=== PATIENT | male | born 1985 | race African-American/Black ===

== ENCOUNTER 2016-10-08 16:01 | Emergency (ER) | payer BC, OTHER ==
[~2016-10-08 16:01] MED LIST: CARA1SUS3 PO; PROM25TA5 PO; ZOFR4TAB3 SL
[2016-10-08 16:09] VITALS: BP 145/91; PULSE 131; RESP 22; TEMP 98.5; O2SAT 95
[2016-10-08] MEDS ORDERED: SODIUM CHLOR 0.9% 1000 ML INJ 1,000 ML IV ONE (16:12)
[2016-10-08] MEDS ORDERED: SODIUM CHLOR 0.9% 1000 ML INJ 800 ML IV ONE (16:12)
[2016-10-08] MEDS ORDERED: PROM25TA10 PO (16:13)
--- NOTE | 2016-10-08 16:15 | PD ---
HPI Chief Complaint: Respiratory Symptoms Time Seen by Provider: 16:09 Travel History International Travel<30 days: No Contact w/Intl Traveler<30days: No Traveled to known affect area: No History of Present Illness HPI 31-year-old male here for evaluation of shortness of breath and chest tightness. Patient reports symptoms mainly on for last couple of days. Shortness of breath is intermittent, worse with exertion. He reports that he has not been feeling well for the last several days having diarrhea and nausea and vomiting earlier this week. He is not sure if he has had fever. He has had a nonproductive cough. No hemoptysis. No known history of cardiopulmonary disease. He is a nonsmoker. No illicit drug use. He drinks alcohol occasionally. PFSH Past Medical History Blood Disorders: No Cancer: No Cardiovascular Problems: No Diminished Hearing: No Endocrine: No Gastrointestinal Disorders: No Immune Disorder: No Kidney Stones: Yes (LITHOTRIPSY 07/14) Musculoskeletal: No Neurologic: No Psychiatric: No Reproductive: No Respiratory: No Past Surgical History Genitourinary Surgery: Yes (LITHOSTRIPSY) Other Surgery: No Social History Alcohol Use: Yes (occ) Tobacco Use: No Substance Use: No Allergies-Medications (Allergen,Severity, Reaction): Coded Allergies: Zithromax (Unverified Adverse Reaction, Unknown, VOMITING, 10/08/16) Reported Meds & Prescriptions Reported Meds & Active Scripts Active Reported Phenergan (Promethazine HCl) 25 Mg Tablet 25 Mg PO Q6H PRN Review of Systems Except as stated in HPI: all other systems reviewed are Neg Physical Exam Narrative GENERAL: Well-developed, well-nourished, comfortable, no apparent distress. SKIN: Focused skin assessment warm/dry. HEAD: Atraumatic. Normocephalic. EYES: Pupils equal and round. No scleral icterus. No injection or drainage. ENT: Mucous membranes pink and dry. NECK: Trachea midline. No JVD. No nuchal rigidity. CARDIOVASCULAR: Tachycardic, regular. RESPIRATORY: No accessory muscle use. Clear to auscultation. Breath sounds equal bilaterally. GASTROINTESTINAL: Abdomen soft, non-tender, nondistended. MUSCULOSKELETAL: No obvious deformities. No clubbing. No cyanosis. No edema. NEUROLOGICAL: Awake and alert. No obvious cranial nerve deficits. Motor grossly within normal limits. Normal speech. PSYCHIATRIC: Appropriate mood and affect; insight and judgment normal. Data Data Last Documented VS Vital Signs Date Time Temp Pulse Resp B/P Pulse Ox O2 Delivery O2 Flow Rate FiO2 10/08/16 18:00 77 20 135/67 100 Nasal Cannula 2 10/08/16 17:11 98.5 Orders Complete Blood Count With Diff (10/08/16 16:12) Comprehensive Metabolic Panel (10/08/16 16:12) Lactic Acid Sepsis Protocol (10/08/16 16:12) Influenzae A/B Antigen (10/08/16 16:12) Blood Culture (10/08/16 16:12) Chest, Single Ap (10/08/16 16:12) Ecg Monitoring (10/08/16 16:12) Iv Access Insert/Monitor (10/08/16 16:12) Oximetry (10/08/16 16:12) Sodium Chlor 0.9% 1000 Ml Inj (Ns 1000 M (10/08/16 16:12) Sodium Chlor 0.9% 1000 Ml Inj (Ns 1000 M (10/08/16 16:12) Ckmb (Isoenzyme) Profile (10/08/16 16:12) D-Dimer (10/08/16 16:12) Troponin I (10/08/16 16:12) CKMB (10/08/16 16:10) CKMB% (10/08/16 16:10) Troponin I (10/08/16 19:00) Labs Laboratory Tests Test 10/08/16 10/08/16 16:10 18:55 White Blood Count 7.0 TH/MM3 Red Blood Count 5.49 MIL/MM3 Hemoglobin 15.8 GM/DL Hematocrit 47.2 % Mean Corpuscular Volume 85.8 FL Mean Corpuscular Hemoglobin 28.7 PG Mean Corpuscular Hemoglobin 33.4 % Concent Red Cell Distribution Width 13.3 % Platelet Count 201 TH/MM3 Mean Platelet Volume 10.7 FL Neutrophils (%) (Auto) 44.9 % Lymphocytes (%) (Auto) 44.9 % Monocytes (%) (Auto) 7.4 % Eosinophils (%) (Auto) 2.2 % Basophils (%) (Auto) 0.6 % Neutrophils # (Auto) 3.1 TH/MM3 Lymphocytes # (Auto) 3.2 TH/MM3 Monocytes # (Auto) 0.5 TH/MM3 Eosinophils # (Auto) 0.2 TH/MM3 Basophils # (Auto) 0.0 TH/MM3 CBC Comment DIFF FINAL Differential Comment D-Dimer Quantitative (PE/DVT) LESS THAN 0.19 MG/L FEU Sodium Level 140 MEQ/L Potassium Level 3.3 MEQ/L Chloride Level 106 MEQ/L Carbon Dioxide Level 24.2 MEQ/L Anion Gap 10 MEQ/L Blood Urea Nitrogen 8 MG/DL Creatinine 1.20 MG/DL Estimat Glomerular Filtration 86 ML/MIN Rate Random Glucose 109 MG/DL Lactic Acid Level 2.7 mmol/L 1.0 mmol/L Calcium Level 9.3 MG/DL Total Bilirubin 0.9 MG/DL Aspartate Amino Transf 13 U/L (AST/SGOT) Alanine Aminotransferase 25 U/L (ALT/SGPT) Alkaline Phosphatase 75 U/L Total Creatine Kinase 129 U/L Creatine Kinase MB 0.5 NG/ML Troponin I LESS THAN 0.02 LESS THAN 0.02 NG/ML NG/ML Total Protein 8.2 GM/DL Albumin 4.5 GM/DL [facility] Medical Decision Making Medical Screen Exam Complete: Yes Emergency Medical Condition: Yes Medical Record Reviewed: Yes Interpretation(s) EKG: Sinus, rate 123, rightward axis, nonspecific inferior T-wave abnormality, no ST segment abnormalities. Differential Diagnosis Sepsis, pneumonia, dehydration, metabolic abnormality, anemia, ACS, PE, pneumothorax, pericarditis Narrative Course Initial vital signs show heart rate 131, blood pressure 145/91, pulse ox 95% on room air, oral temp of 98.5F. Heart rate improved to 91 after a liter of normal saline IV. HR after 2 L NS was 78. CBC is unremarkable. CMP is remarkable for potassium 3.3, otherwise unremarkable. Influenza is negative. Cardiac enzymes are negative. D-dimer is less than 0.19. Initial lactic acid is 2.7. This could be secondary to prolonged tourniquet time. This will be repeated after the patient is given 2 L normal saline IV. Chest xray: No acute disease. Repeat lactic acid is 1.0. Delta troponin is also negative. Patient was made aware of all findings and was observed in the emergency department. He was given 2 L of normal saline IV and on reassessment is resting comfortably. His lung sounds are clear and equal bilaterally. He is in no respiratory distress. Not believe his symptoms are cardiac in nature. His symptoms are more likely anxiety. The patient does report having some stress lately with work. He denies suicidal or homicidal ideation. At this point I believe he is stable for discharge home with outpatient follow-up with a primary care physician this week. He was informed on when to return to the emergency department. He verbalizes understanding and agreement with plan. Diagnosis Primary Impression: Dyspnea Qualified Code: R06.00 - Dyspnea, unspecified type Additional Impression: Sinus tachycardia Referrals: [facility] 3 days Primary Care Physician 3 days Additional Instructions: Follow-up with a primary care physician this week. Return to the emergency department for worsening symptoms or any other concerns. Scripts Hydroxyzine Pamoate (Vistaril)25 Mg Cap25 Mg PO TID PRN (ANXIETY) #15 CAP Ref 0 Prov:Stu Yates MD 10/08/16 Disposition: 01 DISCHARGE HOME Condition: Stable Stu Yates MD Oct 08, 2016 16:15
[2016-10-08 16:23] VITALS: O2SAT 96
--- NOTE | 2016-10-08 16:39 | RADHPO ---
EXAM DATE/TIME: 10/08/2016 16:27 [facility] COMPARISON: CHEST SINGLE AP, April 12, 2014, 20:28. INDICATIONS : Shortness of breath. MEDICAL HISTORY : None. SURGICAL HISTORY : None. ENCOUNTER: Initial ACUITY: 1 day PAIN SCORE: 5/10 LOCATION: Bilateral chest FINDINGS: A single view of the chest demonstrates the lungs to be symmetrically aerated without evidence of mas s, infiltrate or effusion. The cardiomediastinal contours are unremarkable. Osseous structures are intact. CONCLUSION: No acute disease. Eduardo Gonzales MD FACR on October 08, 2016 at 16:37 Board Certified Radiologist. This report was verified electronically.
[2016-10-08 16:50] LABS: AUTOMATED NEUTROPHIL # 3.1 TH/MM3 (1.8-7.7); BASOPHIL % 0.6 % (0.0-2.0); CHLORIDE 106 MEQ/L (98-107); EOSINOPHIL # 0.2 TH/MM3 (0-0.4); EOSINOPHIL % 2.2 % (0.0-4.0); HEMATOCRIT 47.2 % (39.0-51.0); HEMO FLAGS DIFF FINAL; LYMPH % 44.9 % (9.0-44.0); LYMPHOCYTE # 3.2 TH/MM3 (1.0-4.8); MEAN CELL VOLUME 85.8 FL (80.0-100.0); MEAN CORPUSCULAR HEMOGLOBIN 28.7 PG (27.0-34.0); MEAN CORPUSCULAR HGB CONC 33.4 % (32.0-36.0); MONO % 7.4 % (0.0-8.0); NEUT % 44.9 % (16.0-70.0); PLATELET COUNT 201 TH/MM3 (150-450); POTASSIUM 3.3 MEQ/L (3.5-5.1); RED BLOOD COUNT 5.49 MIL/MM3 (4.50-5.90); RED CELL DISTRIBUTION WIDTH 13.3 % (11.6-17.2); SODIUM (NA) 140 MEQ/L (136-145)
[2016-10-08 16:56] LABS: ANION GAP 10 MEQ/L (5-15); BICARBONATE 24.2 MEQ/L (21.0-32.0); BLOOD UREA NITROGEN 8 MG/DL (7-18)
[2016-10-08 16:59] LABS: ALT (GPT) 25 U/L (12-78); AST (GOT) 13 U/L (15-37); GLOMERULAR FILTRATION RATE 86 ML/MIN (>89)
[2016-10-08 17:00] LABS: TOTAL BILIRUBIN ADULT 0.9 MG/DL (0.2-1.0)
[2016-10-08 17:02] LABS: ALKALINE PHOSPHATASE 75 U/L (45-117); CREATINE KINASE 129 U/L (39-308)
[2016-10-08 17:11] VITALS: BP 144/71; PULSE 96; RESP 20; TEMP 98.5; O2SAT 100
[2016-10-08 17:14] LABS: CKMB 0.5 NG/ML (0.5-3.6)
[2016-10-08 18:00] VITALS: BP 135/67; PULSE 77; RESP 20; O2SAT 100
[2016-10-08 18:28] LABS: LACTIC ACID GHOST NOT REPORTABLE
[2016-10-08] MEDS ORDERED: VIST25CA PO (19:31)
[2016-10-08 19:33] VITALS: BP 136/77; PULSE 77; RESP 18; O2SAT 100
--- NOTE | 2016-10-09 14:25 | EKG ---
Date Performed: 10/08/2016 Time Performed: 16:03:14 PTAGE: 31 years EKG: Sinus tachycardia Possible left atrial abnormality Possible left posterior fascicular block Inferior T wave changes are nonspecific Compared to previous tracing, the ST elevation is no longer present. The ST changes previously seen may have been due to early repolarization but are not present on this tracing Borderline ECG PREVIOUS TRACING : 09/08/2013 08.53 DOCTOR: Raymond Meyers Interpretating Date/Time 10/09/2016 14:25:11
== END 2016-10-08 19:55 | disposition home or self-care (01) ==
LOC: PHED 16:01
DX: R06.00 Dyspnea, unspecified (principal); R00.0 Tachycardia, unspecified; R07.89 Other chest pain; R05 Cough; R94.31 Abnormal electrocardiogram [ECG] [EKG]; Z87.442 Personal history of urinary calculi
CPT/HCPCS: 71010; 80053; 82550; 82552; 83605; 84484; 85025; 85379; 87040; 87804; 93005; 96360; 96361; 99284; J7030

== ENCOUNTER 2016-10-14 05:40 | Emergency (ER) | payer OTHER ==
[~2016-10-14] VITALS: Ht 185.4 cm; Wt 90.9 kg
[2016-10-14] VITALS (7 sets, daily range): BP systolic 118–134; BP diastolic 73–84; PULSE 66–86; RESP 18; TEMP 97.8; O2SAT 97–100
[~2016-10-14 05:40] MED LIST changes: -CARA1SUS3 PO; +PROM25TA10 PO; -PROM25TA5 PO; +VIST25CA PO; -ZOFR4TAB3 SL
[2016-10-14] MEDS ORDERED: VENTAER INH (05:56)
[2016-10-14] MEDS ORDERED: SODIUM CHLOR 0.9% 1000 ML INJ 1,000 ML IV ONE ×2 (06:00→07:00)
[2016-10-14] MEDS ORDERED: KETOROLAC TROMETHAMINE 30 MG/ML (IVP) VIAL IV PUSH ONE (06:00)
[2016-10-14] MEDS ORDERED: SODIUM CHLORIDE 0.9% FLUSH 10 ML FLUSH IVF PRN (06:00)
--- NOTE | 2016-10-14 06:04 | PD ---
HPI Chief Complaint: Respiratory Symptoms Time Seen by Provider: 05:54 Travel History International Travel<30 days: No Contact w/Intl Traveler<30days: No Traveled to known affect area: No History of Present Illness HPI 31-year-old male presents to the emergency department by EMS transport from home for complaint of being awakened from sleep with shortness of breath. Patient states that sensation of tightness in his throat and burning sensation in the throat. Unknown history of reflux esophagitis. Patient was just seen in the emergency department for same complaint 10/08/16 with extensive workup. Patient denies personal history of CAD hypertension dyslipidemia diabetes or tobaccoism. No family history of premature onset cardiac disease. Patient was given a rescue inhaler by his primary care provider on Tuesday and he states that seems to make his symptoms worse. Patient denies any chest pain referred neck jaw back shoulder arm or abdominal pain. No sweats no nausea no vomiting. Patient does complain of shortness of breath. Patient was given prescription for Vistaril and his last ER visit but did not fill the prescription. Patient denies any recent long distance travel protracted bedrest her surgical procedure and no lower extremity pain or swelling and no pleuritic chest pain. Patient's had no cough or phlegm production. No fever or chills. Patient rates discomfort 5/10 in intensity. PFSH Past Medical History Blood Disorders: No Cancer: No Cardiovascular Problems: No Diminished Hearing: No Endocrine: No Gastrointestinal Disorders: No Immune Disorder: No Kidney Stones: Yes (LITHOTRIPSY 07/14) Musculoskeletal: No Neurologic: No Psychiatric: No Reproductive: No Respiratory: No Past Surgical History Genitourinary Surgery: Yes (LITHOSTRIPSY) Other Surgery: No Social History Alcohol Use: Yes (occ) Tobacco Use: No Substance Use: No Allergies-Medications (Allergen,Severity, Reaction): Coded Allergies: Zithromax (Unverified Adverse Reaction, Unknown, VOMITING, 10/14/16) Reported Meds & Prescriptions Reported Meds & Active Scripts Active Motrin Ib (Ibuprofen) 200 Mg Tablet 600 Mg PO Q6HR PRN Vistaril (Hydroxyzine Pamoate) 25 Mg Cap 25 Mg PO TID PRN Reported Ventolin Hfa 18 GM Inh (Albuterol Sulfate) 90 Mcg/Act Aer 2 Puff INH Q4-6H PRN Phenergan (Promethazine HCl) 25 Mg Tablet 25 Mg PO Q6H PRN Review of Systems Except as stated in HPI: all other systems reviewed are Neg General / Constitutional: No: Fever, Chills HENT: No: Congestion Cardiovascular: No: Chest Pain or Discomfort Respiratory: Positive: Shortness of Breath, No: Cough Gastrointestinal: No: Abdominal Pain Genitourinary: No: Flank Pain Musculoskeletal: No: Edema, Pain Neurologic: No: Weakness Psychiatric: Positive: Anxiety Hematologic/Lymphatic: No: Lymph Node Enlargement Physical Exam Narrative GENERAL: Well developed, well nourished male in no acute distress no respiratory distress; no stridor or hoarseness. SKIN: Warm and dry. HEAD: Normocephalic. EYES: No scleral icterus. No injection or drainage. ENT: Mucous membranes moist and airway is patent; no posterior pharyngeal edema, erythema, or exudate. NECK: Supple, trachea midline. No JVD or lymphadenopathy. CARDIOVASCULAR: Regular rate and rhythm without murmurs, gallops, or rubs. RESPIRATORY: Breath sounds equal bilaterally. No accessory muscle use. GASTROINTESTINAL: Abdomen soft, non-tender, nondistended. MUSCULOSKELETAL: No cyanosis, or edema. BACK: Nontender without obvious deformity. No CVA tenderness. Data Data Last Documented VS Vital Signs Date Time Temp Pulse Resp B/P Pulse Ox O2 Delivery O2 Flow Rate FiO2 10/14/16 08:00 66 18 122/75 100 Room Air 10/14/16 05:40 97.8 Orders Complete Blood Count With Diff (10/14/16 05:54) Basic Metabolic Panel (Bmp) (10/14/16 05:54) D-Dimer (10/14/16 05:54) Magnesium (Mg) (10/14/16 05:54) Troponin I (10/14/16 05:54) Urinalysis - C+S If Indicated (10/14/16 05:54) Iv Access Insert/Monitor (10/14/16 05:54) Electrocardiogram (10/14/16 05:54) Ecg Monitoring (10/14/16 05:54) Oximetry (10/14/16 05:54) Oxygen Administration (10/14/16 05:54) Chest, Single Ap (10/14/16 05:54) Sodium Chloride 0.9% Flush (Ns Flush) (10/14/16 06:00) Drug Screen, Random Urine (10/14/16 05:54) Westergren Sedimentation Rate (10/14/16 05:54) Sodium Chlor 0.9% 1000 Ml Inj (Ns 1000 M (10/14/16 06:00) Ketorolac Inj (Toradol Inj) (10/14/16 06:00) Lactic Acid (10/14/16 05:54) Nitroglycerin Sl (Nitrostat Sl) (10/14/16 06:15) Sodium Chlor 0.9% 1000 Ml Inj (Ns 1000 M (10/14/16 07:00) Lactic Acid (10/14/16 07:58) Labs Laboratory Tests Test 10/14/16 10/14/16 10/14/16 06:05 07:56 08:04 White Blood Count 7.0 TH/MM3 Red Blood Count 5.21 MIL/MM3 Hemoglobin 14.8 GM/DL Hematocrit 45.1 % Mean Corpuscular Volume 86.5 FL Mean Corpuscular Hemoglobin 28.3 PG Mean Corpuscular Hemoglobin 32.7 % Concent Red Cell Distribution Width 13.0 % Platelet Count 171 TH/MM3 Mean Platelet Volume 10.8 FL Neutrophils (%) (Auto) 35.5 % Lymphocytes (%) (Auto) 47.2 % Monocytes (%) (Auto) 9.8 % Eosinophils (%) (Auto) 6.1 % Basophils (%) (Auto) 1.4 % Neutrophils # (Auto) 2.5 TH/MM3 Lymphocytes # (Auto) 3.3 TH/MM3 Monocytes # (Auto) 0.7 TH/MM3 Eosinophils # (Auto) 0.4 TH/MM3 Basophils # (Auto) 0.1 TH/MM3 CBC Comment DIFF FINAL Differential Comment Erythrocyte Sedimentation Rate 5 mm/hr D-Dimer Quantitative (PE/DVT) 0.20 MG/L FEU Sodium Level 141 MEQ/L Potassium Level 3.5 MEQ/L Chloride Level 104 MEQ/L Carbon Dioxide Level 27.2 MEQ/L Anion Gap 10 MEQ/L Blood Urea Nitrogen 6 MG/DL Creatinine 1.30 MG/DL Estimat Glomerular Filtration 78 ML/MIN Rate Random Glucose 114 MG/DL Lactic Acid Level 2.3 mmol/L 1.1 mmol/L Calcium Level 9.0 MG/DL Magnesium Level 2.4 MG/DL Troponin I LESS THAN 0.02 NG/ML Urine Collection Type CLEAN CATCH Urine Color YELLOW Urine Turbidity CLEAR Urine pH 6.5 Urine Specific [place] 1.028 Urine Protein TRACE mg/dL Urine Glucose (UA) NEG mg/dL Urine Ketones TRACE mg/dL Urine Occult Blood NEG Urine Nitrite NEG Urine Bilirubin NEG Urine Leukocyte Esterase NEG Urine RBC 0-3 /hpf Urine WBC 0-2 /hpf Urine Squamous Epithelial 0-5 /hpf Cells Urine Mucus FEW /lpf Microscopic Urinalysis Comment CULT NOT INDICATED Urine Collection Time 07:56 Urine Opiates Screen NEG Urine Barbiturates Screen NEG Urine Amphetamines Screen NEG Urine Benzodiazepines Screen NEG Urine Cocaine Screen NEG Urine Cannabinoids Screen NEG MDM Medical Decision Making Medical Screen Exam Complete: Yes Emergency Medical Condition: Yes Medical Record Reviewed: Yes Interpretation(s) EKG sinus rhythm rate [address] elevation w/o reciprocal changes consistent with pericarditis v early repolarization, biventricular hypertrophy; these have been noted on prior EKGs and 2006 and 2013 Differential Diagnosis Dyspnea, viral syndrome, pneumonia, PE, CHF, atypical chest pain, ACS, pericarditis, pleurisy Narrative Course Patient placed on lunchroom monitor IV access obtained specimens collected and sent for resulting EKG performed which shows extensive ST-T elevation throughout all leads without reciprocal changes and identified past to have early repolarization changes and pericarditis changes on EKG Patient administered Toradol 30 mg IV and bolused with normal saline Patient did receive nitroglycerin sublingual 0.4 mg without any symptomatic relief; chest x-ray reveals no infiltrate or vascular congestion CBC is automated differential and chemistries within normal limits next line troponin I less than 0.02 Sedimentation rate and urine drug screen pending At 7:10 AM care signed over to oncoming physician Dr. Costa Scripts Ibuprofen (Motrin Ib)200 Mg [id number] Mg PO Q6HR PRN (PAIN SCALE 1 TO 10) #20 Prov:Li Gunderson MD 10/14/16 Estelita Warner MD Oct 14, 2016 06:04
[2016-10-14] MEDS ORDERED: NITROGLYCERIN 0.4 MG SL 25 TABS/BTL SL ONE (06:15)
--- NOTE | 2016-10-14 06:18 | RADHPO ---
EXAM DATE/TIME: 10/14/2016 06:10 [facility] COMPARISON: CHEST SINGLE AP, October 08, 2016, 16:27. INDICATIONS : Shortness of breath, difficulty breathing for 1 week, worsening in the past 24 hours. MEDICAL HISTORY : None. SURGICAL HISTORY : None. ENCOUNTER: Initial ACUITY: 1 week PAIN SCORE: 0/10 LOCATION: Bilateral chest FINDINGS: A single view of the chest demonstrates the lungs to be symmetrically aerated without evidence of mas s, infiltrate or effusion. The cardiomediastinal contours are unremarkable. Osseous structures are intact. CONCLUSION: Normal examination. Kong Arias MD on October 14, 2016 at 6:16 Board Certified Radiologist. This report was verified electronically.
[2016-10-14 06:19] LABS: AUTOMATED NEUTROPHIL # 2.5 TH/MM3 (1.8-7.7); BASOPHIL # 0.1 TH/MM3 (0-0.2); BASOPHIL % 1.4 % (0.0-2.0); EOSINOPHIL # 0.4 TH/MM3 (0-0.4); EOSINOPHIL % 6.1 % (0.0-4.0); HEMATOCRIT 45.1 % (39.0-51.0); HEMO FLAGS DIFF FINAL; LYMPH % 47.2 % (9.0-44.0); LYMPHOCYTE # 3.3 TH/MM3 (1.0-4.8); MEAN CELL VOLUME 86.5 FL (80.0-100.0); MEAN CORPUSCULAR HEMOGLOBIN 28.3 PG (27.0-34.0); MEAN CORPUSCULAR HGB CONC 32.7 % (32.0-36.0); MONO % 9.8 % (0.0-8.0); NEUT % 35.5 % (16.0-70.0); PLATELET COUNT 171 TH/MM3 (150-450); RED BLOOD COUNT 5.21 MIL/MM3 (4.50-5.90)
[2016-10-14 06:29] LABS: CHLORIDE 104 MEQ/L (98-107); POTASSIUM 3.5 MEQ/L (3.5-5.1); SODIUM (NA) 141 MEQ/L (136-145)
[2016-10-14 06:32] LABS: ANION GAP 10 MEQ/L (5-15); BICARBONATE 27.2 MEQ/L (21.0-32.0); BLOOD UREA NITROGEN 6 MG/DL (7-18); MAGNESIUM 2.4 MG/DL (1.5-2.5)
[2016-10-14 06:36] LABS: GLOMERULAR FILTRATION RATE 78 ML/MIN (>89)
[2016-10-14 08:04] LABS: BLOOD, URINE NEG (NEG); GLUCOSE,URINE NEG (NEG); KETONE, URINE TRACE mg/dL (NEG); NITRITE,URINE NEG (NEG); PH, URINE 6.5 (5.0-8.5)
[2016-10-14 08:17] LABS: METHOD OF COLLECTION CLEAN CATCH; MUCUS URINE FEW /lpf (OCC); URINE COLOR YELLOW (YELLW/STRAW)
[2016-10-14 08:18] LABS: COMMENT (UR) CULT NOT INDICATED; CULTURE IF INDICATED CULT NOT INDICATED; RBC, URINE 0-3 /hpf (0-3); SQUAMOUS EPITHELIAL CELL URINE 0-5 /hpf (0-5); WBC, URINE 0-2 /hpf (0-5)
[2016-10-14 08:23] LABS: AMPHETAMINE, URINE NEG (NEG); BARBITURATES, URINE NEG (NEG)
[2016-10-14 08:36] LABS: COCAINE, URINE NEG (NEG)
[2016-10-14] MEDS ORDERED: IBUP-1129 PO (08:49)
--- NOTE | 2016-10-14 08:49 | PD ---
Physical Exam Date Seen by Provider: Oct 14, 2016 Time Seen by Provider: 07:00 Narrative Patient signed out to me by Dr. Warner at 7 AM, please see her notes for further details. Awaiting lab work and IV fluids to finished. Laboratory Tests Test 10/14/16 10/14/16 06:05 07:56 Lymphocytes (%) (Auto) 47.2 % (9.0-44.0) Monocytes (%) (Auto) 9.8 % (0.0-8.0) Eosinophils (%) (Auto) 6.1 % (0.0-4.0) Blood Urea Nitrogen 6 MG/DL (7-18) Estimat Glomerular Filtration 78 ML/MIN (>89) Rate Random Glucose 114 MG/DL (74-106) Lactic Acid Level 2.3 mmol/L (0.4-2.0) Troponin I LESS THAN 0.02 NG/ML (0.02-0.05) Urine Ketones TRACE mg/dL (NEG) Urine Mucus FEW /lpf (OCC) Last 24 hours Impressions Chest X-Ray 10/14/16 0554 Signed Impressions: Service Date/Time: October 06:10 - CONCLUSION: Normal examination. Kong Arias MD Lab work did not show any signs of significant leukocytosis. In fact, patient has some lymphocytosis. Exam is otherwise benign. Chest x-ray is unremarkable. His lactate was initially elevated and after IV fluids, his lactate normalized. At this point, as briefly discussed with Dr. Warner, symptoms are more likely to be viral in nature. Plan would be to release him with symptomatic relief and follow-up to primary care physician. The case was discussed with the patient and he states understanding. Data Data Last Documented VS Vital Signs Date Time Temp Pulse Resp B/P Pulse Ox O2 Delivery O2 Flow Rate FiO2 10/14/16 08:00 66 18 122/75 100 Room Air 10/14/16 05:40 97.8 Orders Complete Blood Count With Diff (10/14/16 05:54) Basic Metabolic Panel (Bmp) (10/14/16 05:54) D-Dimer (10/14/16 05:54) Magnesium (Mg) (10/14/16 05:54) Troponin I (10/14/16 05:54) Urinalysis - C+S If Indicated (10/14/16 05:54) Iv Access Insert/Monitor (10/14/16 05:54) Electrocardiogram (10/14/16 05:54) Ecg Monitoring (10/14/16 05:54) Oximetry (10/14/16 05:54) Oxygen Administration (10/14/16 05:54) Chest, Single Ap (10/14/16 05:54) Sodium Chloride 0.9% Flush (Ns Flush) (10/14/16 06:00) Drug Screen, Random Urine (10/14/16 05:54) Westergren Sedimentation Rate (10/14/16 05:54) Sodium Chlor 0.9% 1000 Ml Inj (Ns 1000 M (10/14/16 06:00) Ketorolac Inj (Toradol Inj) (10/14/16 06:00) Lactic Acid (10/14/16 05:54) Nitroglycerin Sl (Nitrostat Sl) (10/14/16 06:15) Sodium Chlor 0.9% 1000 Ml Inj (Ns 1000 M (10/14/16 07:00) Lactic Acid (10/14/16 07:58) Labs Laboratory Tests Test 10/14/16 10/14/16 10/14/16 06:05 07:56 08:04 White Blood Count 7.0 TH/MM3 Red Blood Count 5.21 MIL/MM3 Hemoglobin 14.8 GM/DL Hematocrit 45.1 % Mean Corpuscular Volume 86.5 FL Mean Corpuscular Hemoglobin 28.3 PG Mean Corpuscular Hemoglobin 32.7 % Concent Red Cell Distribution Width 13.0 % Platelet Count 171 TH/MM3 Mean Platelet Volume 10.8 FL Neutrophils (%) (Auto) 35.5 % Lymphocytes (%) (Auto) 47.2 % Monocytes (%) (Auto) 9.8 % Eosinophils (%) (Auto) 6.1 % Basophils (%) (Auto) 1.4 % Neutrophils # (Auto) 2.5 TH/MM3 Lymphocytes # (Auto) 3.3 TH/MM3 Monocytes # (Auto) 0.7 TH/MM3 Eosinophils # (Auto) 0.4 TH/MM3 Basophils # (Auto) 0.1 TH/MM3 CBC Comment DIFF FINAL Differential Comment Erythrocyte Sedimentation Rate 5 mm/hr D-Dimer Quantitative (PE/DVT) 0.20 MG/L FEU Sodium Level 141 MEQ/L Potassium Level 3.5 MEQ/L Chloride Level 104 MEQ/L Carbon Dioxide Level 27.2 MEQ/L Anion Gap 10 MEQ/L Blood Urea Nitrogen 6 MG/DL Creatinine 1.30 MG/DL Estimat Glomerular Filtration 78 ML/MIN Rate Random Glucose 114 MG/DL Lactic Acid Level 2.3 mmol/L 1.1 mmol/L Calcium Level 9.0 MG/DL Magnesium Level 2.4 MG/DL Troponin I LESS THAN 0.02 NG/ML Urine Collection Type CLEAN CATCH Urine Color YELLOW Urine Turbidity CLEAR Urine pH 6.5 Urine Specific [place] 1.028 Urine Protein TRACE mg/dL Urine Glucose (UA) NEG mg/dL Urine Ketones TRACE mg/dL Urine Occult Blood NEG Urine Nitrite NEG Urine Bilirubin NEG Urine Leukocyte Esterase NEG Urine RBC 0-3 /hpf Urine WBC 0-2 /hpf Urine Squamous Epithelial 0-5 /hpf Cells Urine Mucus FEW /lpf Microscopic Urinalysis Comment CULT NOT INDICATED Urine Collection Time 07:56 Urine Opiates Screen NEG Urine Barbiturates Screen NEG Urine Amphetamines Screen NEG Urine Benzodiazepines Screen NEG Urine Cocaine Screen NEG Urine Cannabinoids Screen NEG MDM Medical Record Reviewed: Yes Supervised Visit with XIMENA: No Diagnosis Primary Impression: Viral syndrome Med/Other Pt SpecificInfo: Prescription(s) given Scripts Ibuprofen (Motrin Ib)200 Mg [id number] Mg PO Q6HR PRN (PAIN SCALE 1 TO 10) #20 Prov:Li Gunderson MD 10/14/16 Disposition: 01 DISCHARGE HOME Condition: Stable Li Gunderson MD Oct 14, 2016 08:49
--- NOTE | 2016-10-14 14:40 | EKG ---
Date Performed: 10/14/2016 Time Performed: 05:48:08 PTAGE: 31 years EKG: Sinus rhythm Extensive ST elevation suggests pericarditis Abnormal ECG Compared to PREVIOUS TRACING , the sinus rate is slower. Diffuse ST elevations are new, consider alex carditis in the appropriate clinical setting. PREVIOUS TRACIN10/08/2016 16.03 DOCTOR: Carlo Ramirez Interpretating Date/Time 10/14/2016 14:39:21
== END 2016-10-14 09:10 | disposition home or self-care (01) ==
LOC: PHED 05:40
DX: B34.9 Viral infection, unspecified (principal); R94.31 Abnormal electrocardiogram [ECG] [EKG]
CPT/HCPCS: 71010; 80048; 80307; 81001; 83605; 83735; 84484; 85025; 85379; 85652; 93005; 96361; 96374; 99285; J1885; J7030